=== PATIENT | male | born 1965 | race Caucasian/White ===

== ENCOUNTER 2017-03-17 21:02 | Inpatient (IN) | payer OTHER ==
[~2017-03-17] VITALS: Ht 172.7 cm; Wt 95.0 kg
[2017-03-17 21:38] LABS: BASOPHIL % 0.3 % (0-2); PLATELET COUNT 264 x10^3mcL (130-400); RED CELL DISTRIBUTION WIDTH 13.6 % (11.5-14.5)
[2017-03-17 21:43] LABS: CALCIUM 8.1 mg/dL (8.5-10.1); CARBON DIOXIDE 28.3 mmol/L (21-32); CHLORIDE SERUM 103 mmol/L (98-107); CREATININE SERUM 0.9 mg/dL (0.7-1.3); GFR1 > 60 mL/min; GLUCOSE SERUM 129 mg/dL (74-106); POTASSIUM SERUM 3.7 mmol/L (3.5-5.1); SODIUM SERUM 139 mmol/L (136-145)
[2017-03-17 21:45] LABS: ALKALINE PHOSPHATASE 247 U/L (46-116); ALT/SGPT 482 U/L (16-63); AMYLASE 41 U/L (25-115); AST/SGOT 272 U/L (15-37); BILIRUBIN TOTAL 5.02 mg/dL (0.20-1.00); LIPASE 147 IU/L (73-393); TOTAL PROTEIN, SERUM 7.2 g/dL (6.4-8.2)
[2017-03-17 21:46] LABS: ALBUMIN 3.3 g/dL (3.4-5.0)
[2017-03-17] MEDS ORDERED: LISINOPRIL10 MG PO (23:31)
[2017-03-17 23:39] LABS: CHOLESTEROL/HDL RATIO 3.6
[2017-03-17 23:48] LABS: FREE T4 1.07 ng/dL (0.76-1.46); FREE THYROXINE INDEX 3.3 ug/dL (1.4-4.5); T4(THYROXINE) 8.8 ug/dL (4.7-13.3)
[2017-03-17 23:49] LABS: T3 TOTAL 1.18 ng/mL
[2017-03-18 00:47] VITALS: BP 107/65
[2017-03-18 00:48] VITALS: Ht 172.7 cm; Wt 95.0 kg
[2017-03-18 05:13] LABS: microscopic required? YES; urine erythrocyte TRACE (NEGATIVE)
[2017-03-18 05:32] VITALS: BP 108/68
[2017-03-18 06:17] LABS: AMPHETAMINE QUAL UR NONE DETECTED (NEG <=1000)
[2017-03-18 07:24] LABS: BASOPHIL % 0.4 % (0-2); PLATELET COUNT 244 x10^3mcL (130-400); RED CELL DISTRIBUTION WIDTH 13.7 % (11.5-14.5)
[2017-03-18 07:37] LABS: ALKALINE PHOSPHATASE 226 U/L (46-116); ALT/SGPT 389 U/L (16-63); AST/SGOT 180 U/L (15-37); CALCIUM 7.9 mg/dL (8.5-10.1); CARBON DIOXIDE 28.3 mmol/L (21-32); CHLORIDE SERUM 107 mmol/L (98-107); GFR1 > 60 mL/min; GLUCOSE SERUM 120 mg/dL (74-106); MAGNESIUM 1.9 mg/dL (1.8-2.4); PHOSPHOROUS 2.9 mg/dL (2.5-4.9); POTASSIUM SERUM 3.8 mmol/L (3.5-5.1); SODIUM SERUM 140 mmol/L (136-145); TOTAL PROTEIN, SERUM 6.5 g/dL (6.4-8.2)
[2017-03-18 07:42] LABS: ALBUMIN 2.7 g/dL (3.4-5.0)
[2017-03-18 10:06] VITALS: BP 106/66
[2017-03-18 17:02] VITALS: BP 116/77
[2017-03-18 17:53] VITALS: BP 128/75
[2017-03-18 21:11] VITALS: BP 117/64
[2017-03-19 05:28] VITALS: BP 101/60
[2017-03-19 06:17] LABS: BASOPHIL % 0.3 % (0-2); PLATELET COUNT 204 x10^3mcL (130-400); RED CELL DISTRIBUTION WIDTH 13.8 % (11.5-14.5)
[2017-03-19 06:29] LABS: CALCIUM 8.2 mg/dL (8.5-10.1); CARBON DIOXIDE 26.5 mmol/L (21-32); CHLORIDE SERUM 109 mmol/L (98-107); CREATININE SERUM 0.9 mg/dL (0.7-1.3); GFR1 > 60 mL/min; GLUCOSE SERUM 111 mg/dL (74-106); PHOSPHOROUS 3.7 mg/dL (2.5-4.9); POTASSIUM SERUM 4.3 mmol/L (3.5-5.1); SODIUM SERUM 141 mmol/L (136-145)
[2017-03-19 10:30] VITALS: BP 108/62
[2017-03-19 16:45] VITALS: BP 121/73
[2017-03-19 20:36] VITALS: BP 115/66
[2017-03-20 05:54] VITALS: BP 132/79
[2017-03-20 06:01] LABS: BASOPHIL % 0.4 % (0-2); PLATELET COUNT 213 x10^3mcL (130-400); RED CELL DISTRIBUTION WIDTH 13.7 % (11.5-14.5)
[2017-03-20 06:37] LABS: CALCIUM 8.2 mg/dL (8.5-10.1); CHLORIDE SERUM 109 mmol/L (98-107); GFR1 > 60 mL/min; GLUCOSE SERUM 104 mg/dL (74-106); MAGNESIUM 1.8 mg/dL (1.8-2.4); PHOSPHOROUS 2.9 mg/dL (2.5-4.9); POTASSIUM SERUM 3.9 mmol/L (3.5-5.1); SODIUM SERUM 143 mmol/L (136-145)
[2017-03-20 09:36] VITALS: BP 122/72
[2017-03-20] MEDS ORDERED: NORCO1 TA2 PO (13:55)
[2017-03-20 14:42] VITALS: BP 122/72
[2017-03-20] MEDS ORDERED: THERA TABS1 TAB PO (14:43)
[2017-03-20] MEDS ORDERED: COL100 PO (14:43)
== END 2017-03-20 16:29 | disposition home or self-care (01) | DRG 263 ==
LOC: ED 21:02 → DU 23:20 → MU 23:20 → DU 03-18 00:15 → MU 03-18 06:01
PROVIDERS: Emergency Medicine; Family Medicine; Surgery; ADMIT Family Medicine
PROC: BF00YZZ Plain Radiography of Bile Ducts using Other Contrast (ICD-10-PCS; 2017-03-18)
PROC: 0F798DZ Dilation of Common Bile Duct with Intraluminal Device, Via Natural or Artificial Opening Endoscopic (ICD-10-PCS; 2017-03-18)
PROC: 0FT44ZZ Resection of Gallbladder, Percutaneous Endoscopic Approach (ICD-10-PCS; principal; 2017-03-18 11:00)
DX: K80.60 Calculus of gallbladder and bile duct with cholecystitis, unspecified, without obstruction (principal); N17.0 Acute kidney failure with tubular necrosis; E43 Unspecified severe protein-calorie malnutrition; I10 Essential (primary) hypertension; E11.9 Type 2 diabetes mellitus without complications; Z68.32 Body mass index [BMI] 32.0-32.9, adult; R17 Unspecified jaundice; R73.03 Prediabetes; K83.1 Obstruction of bile duct
CPT/HCPCS: 43262; 80307; 82962; 83880; 84439; 94150; C1769; C1887; C2617; G0480; J0690; J1610; J2175; J2250; J2270; J3010; J3490; J7030; Q0092; Q0162; Q9967